=== PATIENT | female | born 1990 | race Caucasian/White ===

== ENCOUNTER → 2020-04-29 | Outpatient (CLI) | payer OTHER ==
[~2020-04-29] MED LIST: MOTRIN 600600 MG/TAB PO; PERCOCET 325 MG1 TA2 PO; SENOKOT S 50 MG1 TAB PO; TUCKS50% TP
== END ==
LOC: MC.RAD 07:40
DX: N60.01 Solitary cyst of right breast (principal)

== ENCOUNTER 2021-04-04 11:48 | Inpatient (IN) | payer OTHER ==
[~2021-04-04] VITALS: Ht 165.1 cm; Wt 73.6 kg
[2021-04-04] VITALS (31 sets, daily range): BP systolic 99–134; BP diastolic 50–85; PULSE 67–110; TEMP 97.9–98.8
--- NOTE | 2021-04-04 13:20 | NUR ---
1320- 39.4, G2L1 here for IOL. Ambulatory to LDR5 with spouse. Oriented to room and POC. Changes into clean gown. Reports normal movement, and irregular contractions. Denies any LOF, or VB. 1325- This RN to bedside. EFM explained and placed. Consent forms explained and signed. IV to left FA. Routine labs obtained via IV site. IVF infusing. 1346- Roles to bedside and reviews plan of care with patient and spouse. AROM for small amount of clear fluids. SVE by provider /-2. Hina care and patient wedge left. Assessment completed..
[2021-04-04 13:58] LABS: BASO % 0.4 % (0.0-2.0); EOS # 0.2 (0.0-0.7); EOS % 2.1 % (0-4.0); GRAN # 7.4 (1.4-6.5); HEMATOCRIT 38.1 % (37.0-47.0); HEMOGLOBIN 12.7 g/dl (12.5-16.0); LYMPH # 1.8 (1.2-3.4); LYMPH % 17.1 % (20.0-51.0); MEAN CELL VOLUME 93 fl (80.0-100.0); MEAN CORPUSCULAR HEMOGLOBIN 31 pg (27.0-31.0); MEAN CORPUSCULAR HGB CONC 33 g/dl (33.0-37.0); MEAN PLATELET VOLUME 12.3 fl (7.4-10.4); MONO # 0.9 (0.1-0.6); MONO % 8.4 % (1.7-9.3); PLATELET COUNT 223 K/mm3 (130-400); REDCELL DISTRIBUTION WIDTH-CV 13.3 % (11.5-14.5)
[2021-04-04] MEDS ORDERED: PRENATAL TABLET PO (14:14)
[2021-04-04] MEDS ORDERED: CALCIUM 600MG+D1 TAB PO (14:15)
--- NOTE | 2021-04-04 14:45 | NUR ---
Declines covid test.
--- NOTE | 2021-04-04 16:40 | NUR ---
1655- Patient reports increased rectal pressure. SVE by this RN C/+1. Dr. Spivey notified. See physician notification. Monte catheter removed. Hina care provided. Patient instructed on pushing with contractions. 1703- Dr. Spivey to bedside for delivery. Patient repositioned in footplates. 1706- Patient begins to push with contractions with Dr. Spivey at bedside. 1711- Spontaneous vaginal delivery of viable male . Nares and mouth bulb suctioned by Dr. Spivey. To mother's chest where dried and stimulated by nurser RN. 1713- Cord clamped x2 and cut by father of . Care of assumed by Edgar Bowles RN. Perineum intact. 1715- Spontaneous and intact delivery of placenta. Pitocin infusing at 333ml/hr per protocol. Fundus firm, midline, lochia minimal. Hina care provided and patient repositioned in bed. Plan of care and safety precautions reviewed. See doctor dictation, anesthesia record, and nurses notes.
--- NOTE | 2021-04-04 21:45 | NUR ---
Epidural dc'd. Up to bathroom with steady gait, performs own pericare. Clean gown on and ambulates to room.
[2021-04-05 03:30] VITALS: BP 103/53; PULSE 80; TEMP 98
[2021-04-05 07:00] VITALS: BP 102/65; PULSE 75; TEMP 97.3
--- NOTE | 2021-04-05 07:00 | NUR ---
Rests in bed, alert. Request pain medication. Baby brought to patient from nursery. 0715 Ibuprofen 600 mg given per request and as ordered.
--- NOTE | 2021-04-05 09:07 | NUR ---
Initial visit; Parents thanked for offering congratulations and Blessings for the of their son. thanked family for choosing [facility].
[2021-04-05] MEDS ORDERED: IBU600 MG PO (09:22)
[2021-04-05 13:00] VITALS: BP 117/73; PULSE 68; TEMP 98
[2021-04-05 18:15] VITALS: BP 103/79; PULSE 95; TEMP 97.5
--- NOTE | 2021-04-05 19:15 | NUR ---
DISCHARGE TEACHING COMPLETED- UNDERSTANDING VOICED BY MOM AND DAD- QUESTIONS ENCOURAGED AND ANSWERED AT THIS TIME. PT IS ESCORTED OFF THE UNIT BY RN
== END 2021-04-05 19:15 | disposition home or self-care (01) | DRG 807 ==
LOC: OB 13:13 → LDR 13:13 → UNDOADMIN 13:13 → OB 20:30 → LDR 20:30 → OB 04-05 19:15
PROVIDERS: ADMIT Obstetrics & Gynecology
PROC: 10E0XZZ Delivery of Products of Conception, External Approach (ICD-10-PCS; principal; 2021-04-04)
PROC: 10907ZC Drainage of Amniotic Fluid, Therapeutic from Products of Conception, Via Natural or Artificial Opening (ICD-10-PCS; 2021-04-04)
PROC: 3E033VJ Introduction of Other Hormone into Peripheral Vein, Percutaneous Approach (ICD-10-PCS; 2021-04-04)
DX: O80 Encounter for full-term uncomplicated delivery (principal); Z37.0 Single live birth; Z3A.39 39 weeks gestation of pregnancy
CPT/HCPCS: J2590; J2791; J2795; J7120